=== PATIENT | male | born 1935 | race Caucasian/White ===

== ENCOUNTER 2020-06-30 17:14 | Inpatient (IN) | payer MEDICARE, BC ==
[~2020-06-30] VITALS: Ht 171.4 cm; Wt 68.0 kg
[2020-06-30] MEDS ORDERED: TYLENOL325 M1 PO (18:14)
[2020-06-30] MEDS ORDERED: BROVANA15 MCG/2 M INH (18:15)
[2020-06-30] MEDS ORDERED: LIPITOR40 MG PO (18:16)
[2020-06-30] MEDS ORDERED: LAXATIVE SUPPOS10 MG R (18:17)
[2020-06-30] MEDS ORDERED: COREG6.25 MG PO (18:20)
[2020-06-30] MEDS ORDERED: KEPPRA500 MG PO (18:21)
[2020-06-30] MEDS ORDERED: EXELON1 EACH T (18:21)
[2020-06-30] MEDS ORDERED: ZESTRIL10 MG PO (18:22)
[2020-06-30] MEDS ORDERED: CLARITIN10 MG PO (18:22)
[2020-06-30] MEDS ORDERED: Meclizine25 MG PO (18:23)
[2020-06-30] MEDS ORDERED: PROTONIX40 MG PO (18:24)
[2020-06-30] MEDS ORDERED: MILK OF MA400 MG/5 M PO (18:24)
[2020-06-30] MEDS ORDERED: MIRALAX119 GM PO (18:25)
[2020-06-30] MEDS ORDERED: RISPERDAL0.5 MG PO (18:26)
[2020-06-30] MEDS ORDERED: SENNA LAX8.6 M1 PO (18:27)
[2020-06-30] MEDS ORDERED: VISTARIL50 MG PO (18:29)
[2020-06-30] MEDS ORDERED: Theo-24 200MG200 MG PO (18:29)
[2020-06-30] MEDS ORDERED: [UNRECOGNIZED DRUG - CODE] PO (18:30)
[2020-06-30] MEDS ORDERED: VITAMIN A & D113 GM T (18:40)
[2020-06-30 21:50] VITALS: BP 129/60
--- NOTE | 2020-06-30 21:50 | NUR ---
A 85, admitted pink slip to , under the services of ROLA Richard MD with a diagnosis of intermittent explosive disorder. Chief complaint is combative, threatening to shoot staff at SNF, exit seeking. Patient arrived via wheel chair from [facility]. Initial assessment completed. Vital signs taken and recorded. ROLA RICHARD MD notified of admission to the unit. Orders received. See assessment for past medical history, medications and allergies. Patient oriented to unit. [facility] visitation policy reviewed. Clothing/patient valuable form completed. NAT NERI
--- NOTE | 2020-06-30 22:38 | NUR ---
HOSPITALIST NUMBER CALLED, UPDATED ON NEW ADMISSION, CONSULT PLACED UNDER FOR MEDICAL MANAGEMENT. NO NEW ORDERS RECEIVED.
--- NOTE | 2020-06-30 22:40 | NUR ---
DR. SEWELL AND MEDICAL STUDENT MYRANDA FISHER ON UNIT AT THIS TIME, UPDATE PROVIDED AND INFORMED OF NEEDING WOUND ORDERS. NO NEW ORDERS AT THIS TIME.
[2020-07-01 00:37] LABS: BILIRUBIN Negative (Negative); BLOOD Negative (Negative); CLARITY Clear (Clear); COLOR Yellow (Yellow); GLUCOSE Negative (Negative); KETONE Negative (Negative); LEUKO ESTERASE Negative (Negative); NITRITE Negative (Negative); UROBILINOGEN 0.2 E.U./dl (0.0-1.0)
[2020-07-01 00:48] LABS: WBC 0-2 wbc/hpf (0-5)
--- NOTE | 2020-07-01 01:17 | NUR ---
PT ALERT TO PERSON, APPROX TIME OTHERWISE CONFUSED. PT CALM, COOPERATIVE. PARTICIPATE IN ADMISSION ASSESSMENT. SKIN ASSESSMENT COMPLETED, SEE WOUND SCREEN. PT DENIES SI/HI, HALLUCINATIONS, PAIN. NO PARANOIA OR DELUSIONS NOTED. NO AGGRESSIVE BEHAVIORS NOTED, NO EXIT SEEKING BEHAVIOR. MEDICATION COMPLIANT AFTER REVIEW. UPON AUSCULTATION WHEEZES NOTED TO HAVE EXPIRATORY WHEEZING IN RIGHT ANTERIOR LOBE. NO S/S RESPIRATORY DISTRESS NOTED. PT ABLE TO VOICE NEEDS, X1 ASSIST, CONTINENT/INCONTINENT OF BOWEL & BLADDER. EDUCATED ON USE OF CALL LIGHT, PT VOICED UNDERSTANDING. PT RESTING IN BED AT THIS TIME. PLAN IS TO CONTINUE TO MONITOR MOOD AND BEHAVIORS. Q 15 MIN CHECKS MAINTAINED.
--- NOTE | 2020-07-01 05:50 | NUR ---
24 HR chart check completed.
--- NOTE | 2020-07-01 06:40 | NUR ---
PT SLEPT 2 HOURS.
[2020-07-01 07:29] LABS: BASO # 0.1 10*3/uL (0.0-0.1); BASO % 0.7 % (0.0-1.0); EOS # 0.3 10*3/uL (0.0-0.4); EOS % 3.8 % (1.0-4.0); HEMATOCRIT 37.3 % (42.0-52.0); LYMPH # 1.6 10*3/uL (1.3-4.4); MEAN CELL VOLUME 94.7 fl (80.0-94.0); MEAN CORPUSCULAR HGB 30.2 pg (27.0-31.0); MEAN CORPUSCULAR HGB CONC 31.9 g/dl (33.0-37.0); MONO # 0.7 10*3/uL (0.1-1.0); MONO % 8.7 % (3.0-9.0); NEUT % 65.5 % (47.0-73.0); PLATELET COUNT AUTOMATED 176 10*3/uL (130-400); RED BLOOD COUNT 3.94 10*6/uL (4.50-5.90); RED CELL DISTRI WIDTH 14.3 % (0-14.5); WHITE BLOOD COUNT 7.7 10*3/uL (4.8-10.8)
[2020-07-01 07:46] LABS: ALBUMIN 3.2 gm/dl (3.1-4.5); CREATININE 1.43 mg/dL (0.70-1.30); POTASSIUM 4.9 mmol/L (3.5-5.1); TOTAL PROTEIN 6.3 gm/dL (6.4-8.2)
[2020-07-01 07:54] LABS: THYROID STIM HORMONE (HS) 0.802 uIU/ml (0.358-4.75)
[2020-07-01 08:00] VITALS: BP 133/65
--- NOTE | 2020-07-01 08:15 | NUR ---
Occupational Therapy evaluation completed on three with full evaluation to follow. Recommend occupational therapy per plan of care and SNF upon discharge. Thank you for this referral. Negra Smith OTR/L
--- NOTE | 2020-07-01 08:15 | NUR ---
PHYSICAL THERAPY Physical Therapy evaluation completed on U with full evaluation to follow. Recommend physical therapy per plan of care and return to facility with follow therapy/SNF upon discharge. Thank you for this referral. Leticia Diaz PT
--- NOTE | 2020-07-01 08:30 | NUR ---
Treatment Plan meeting was held this a.m. with Dr. Nayak via telephone, PRE BILLING CLINICIAN Leanna, RN, AT, DRAWBRIDGE OPERATOR-S and Petroleum Production Engineer in attendance. Plan for discharge Next Week. Pt. came to [facility] from [facility]. Will reach out to facility today to discuss discharge planning.
[2020-07-01 08:37] LABS: VITAMIN D, 25-HYDROXY 25.7 ng/mL (30-100)
--- NOTE | 2020-07-01 09:22 | NUR ---
PHYSICAL THERAPY Screen and PT eval received will follow thank you Leticia Diaz PT
--- NOTE | 2020-07-01 11:00 | NUR ---
PT CAME TO THE NURSES STATION TO ASK WHAT THE PAPER WAS THAT HE SIGNED. THE PT STATED "THAT WOMAN DID NOT TELL ME WHAT IT WAS, WHAT WAS IT?" EXPLAINED TO THE PT IT WAS A VOLUNTARY TO SIGN IN FOR TREATMENT TO THE HOSPITAL. PT EASILY REDIRECTED. WILL CONTINUE TO OFFER SUPPORT FOR PT.
--- NOTE | 2020-07-01 11:00 | NUR ---
DR PAGE ON UNIT TO ASSESS PATIENT, UPDATE PROVIDED.
--- NOTE | 2020-07-01 11:52 | NUR ---
Spoke with Chiara Automatic Wheel Line Operator at [facility]. 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 [facility] requires Negative Covid Swab 48 hours Prior to discharge. Pt. will be required to Quarantine and Isolate for 14 days upon return to facility even with negative results.
--- NOTE | 2020-07-01 12:15 | NUR ---
Left Message for Pt. daughter Claire to inquire about Medical Power of Data Coordinator Paperwork.
--- NOTE | 2020-07-01 15:52 | NUR ---
PM GROUP PT WAS BROUGHT INTO THE DAYROOM BY [facility] DURING GROUP BUT PT COULD NOT BE CONVINCED TO STAY. PT STATED, "NO, I'M GOING TO GO DOWN TO THE END OF THIS CHIANG AND FIND THE JOVANA THAT BROUGHT ME HERE. I GOTTA PROFESSOR OF ARCHAEOLOGY MY AND DAUGHTER" PT EXITED THE DAYROOM AND DID NOT RETURN.
--- NOTE | 2020-07-01 15:59 | NUR ---
P: CONFUSION, SEVERAL ATTEMPTS TO EXIT SEEK OFF UNIT. I: ONE ON ONE, REDIRECTION/REORIENTATION PROVIDED R: EFFECTIVE. NO AGGRESSION OBSERVED. PATIENT IS ALERT TO SELF WITH CONFUSION. DENIES HALLLUCINATIONS, DELUSION, HI/SI OR PAIN. NO RESPONSE TO INTERNAL STIMULI. MEDICATION COMPLAINT. Q 15 MINUTE SAFETY CHECKS MAINTAINED. 1 PERSON ASSIST WITH ACTIVITIES OF DAILY LIVING, CONTINENT OF BOWEL AND BLADDER. SET UP FOR MEALS, INTAKES ARE GOOD WITH ADEQUATE FLUIDS. AMBULATORY WITH WALKER. NO AGGRESSION OBSERVED. DID NOT PARTICIPATE IN GROUP SESSSIONS. P: CONTINUE TO MONITOR FOR MOOD CHANGES, AGGRESSION AND EXIT SEEKING. PROVIDE ONE ON ONE, REDIRECTION/OREINTATION, ENCOURGE GROUP ACTIVITIES NEEDED.
--- NOTE | 2020-07-01 16:18 | NUR ---
Shift chart check completed.
--- NOTE | 2020-07-01 17:55 | NUR ---
PATIENT REPEATEDLY AT THE ENTERANCE DOOR, TRYING TO PRY TO DOOR OPEN. REDIRECTED MULTIPLY TIMES, THEN PATIENT WOULD GO EVERY DOOR AND TRY TO OPEN THE DOORS. PATIENT STATING "I WANT TO GO HOME" PATIENT REORIENTED, INEFFECTIVE. PRN ATIVAN 1MG PO GIVEN AT THIS TIME. ENCOURAGE PATIENT TO COME IN DINING ROOM AND WATCH TV WITH THE OTHER PATIENTS.
--- NOTE | 2020-07-01 18:42 | NUR ---
PRN ATIVAN EFFECTIVE. PATIENT CONTINUES TO GO TO THE DOORS TO ATTEMPT TO OPEN BUT NOT OFTEN.
[2020-07-01 19:43] VITALS: BP 111/59
--- NOTE | 2020-07-01 22:52 | NUR ---
P-CONFUSED. EXIT SEEKING. I-PROVIDED REIDRECTION, REORIENTATION AND 1:1 EMOTIONAL SUPPORT. ENCOURAGED MEDICATION COMPLIANCE AND PROVIDED MEDICATION EDUCATION. ADMINISTERED MEDICATIONS PRESCRIBED. ADLS X1 ASSIST PRN. R-ALERT AND ORIENTED TO PERSON ONLY. FREQUENT REDIRECTION, REORIENTATION NEEDED. ACCEPTED 1:1 EMOTIONAL SUPPORT. MEDICATION COMPLIANT. AMBULATES THROUGHOUT UNIT WITH WALKER. P-WILL CONTINUE TO MONITOR FOR EXIT SEEKING, MOOD AND BEHAVIOR. Q 15 MIN CHECKS MAINTAINED.
--- NOTE | 2020-07-02 06:15 | NUR ---
24 HR chart check completed. PT SLEPT 4 HOURS WITH INTERMITTENT AWAKENINGS.
--- NOTE | 2020-07-02 07:00 | NUR ---
PHYSICAL THERAPY Patient seen this am for therapy visit and was just awakening supine in bed upon therapist arrival. Patient identified by name / and was joined by OT physicians assistant this morning for observation only. Patient tranfers supine to sit EOB with MIN A, demonstrating several bouts of L side lean, needing a minute or so of static EOB sit to fully awaken, voicing no c/o's pain at this time. Patient completed sit to stand transfer, CGA, then ambulated with use of wh walker, ad mirza in hallway, 100'x 1, CGA, demonstrating decreased stride, L side gait deviation / "drifting" and v/c for increased focus on task while returning to activity room chair at table. Patient remained under U staff Supervision, awaiting breakfast and will continue per POC as tolerated. Total treatment time 14 minutes. Geoff Joy, BORING AND FILLING MACHINE OPERATOR
[2020-07-02 07:36] VITALS: BP 121/65
--- NOTE | 2020-07-02 08:00 | NUR ---
OT NOTE Prior to coming to the floor spoke with nursing staff and reported that therapy was coming to treat this pt. Nurse gave approval. Pt was seen this A.M. 1:1 for 15 minute OT session with NUTRITION PARTNER and nursing staff present for observation only. Upon arrival pt was supine in bed. Pt identified by name and and had no complaints at this time. Pt transferred supine to sit EOB with modA X 2. Upon inital rise to the EOB pt presented with L lateral lean that required modA to correct and maintain. Sit to stand completed from bed level with Feliciano X 2 and use of w/w for UE support. Challenged pt's static standing tolerance needed for increased I in self care tasks and functional transfers, pt was able to tolerate aprox 4 minutes at a time before sitting due to fatigue. Functional mobility was then completed to the dining camilo with Feliciano and use of w/w for assist with walker navigation and verbal prompts for correcting posture. Pt was left sitting upright in the dining camilo under [facility] staff supervision. COntinue with rec D/C plan to SNF. ELEANOR Dubois/Yohannes
--- NOTE | 2020-07-02 08:30 | NUR ---
Treatment Plan meeting was held this a.m. with TREASURE Ram RN, AT and Swaging Machine Operator in attendance. Plan for discharge Next Week. Pt. will return to [facility] as a Long-Term Care Resident.
--- NOTE | 2020-07-02 09:24 | NUR ---
DR DRAKE ON UNIT TO ASSESS PATIENT, UPDATE PROVIDED.
--- NOTE | 2020-07-02 11:22 | NUR ---
P: PATIENT IS CONFUSED, IRRITABLE AND RESTLESS. PATIENT WANTS TO GO HOME. PATIENT IS ACTIVELY EXIT SEEKING. I: 1:1 FOR EMOTIONAL SUPPORT. PROVIDE SPACE NEEDED. ALLOW PATIENT TO VERBALIZE FEELINGS AND CONCERNS. R: PATIENT IS ALERT TO SELF ONLY WITH CONFUSION. PATIENT STATES HE IS "[place]". PATIENT STATES IT IS THE YEAR 42,000. PATIENT IS CONFUSED. HE IS EXIT SEEKING, WANTS TO LEAVE HERE TO GO HOME. PATIENT DENIES ANY SADNESS OR DEPRESSION. DENIES ANXIETY, DENIES HALLUCINATIONS OR DELUSIONS. PATIENT DENIES SI/HI. PATIENT IS HARD OF HEARING BUT DOES COOPERATIVE THROUGHOUT ASSESSMENT. PATIENT IS AMBULATORY WITH WAKER. 1 ASSSIT WITH TRANSFERS. SET UP FOR MEALS. INTAKES ARE GOOD WITH ADEQUATE FLUIDS. PATIENT IS MEDICATION COMPLIANT WITH EDUCATION. P: ENOURAGE PATIENT TO PARTICIPATE IN GROUP ACTIVITES. ENOURAGE MEDICATION COMPLIACE. ENCOURAGE PATIENT TO VERBALIZE FEELINGS. CONTINUE TO MONITOR FOR MOODS/BEHAVIORS. Q15 MINUTE SAFETY CHECKS MAINTAINED.
--- NOTE | 2020-07-02 11:49 | NUR ---
AM GROUP PT WAS PRESENT AT THE START OF MORNING GROUP THERAPY AND WAS SEATED AT A TABLE. PT WAS ENCOURAGED TO PARTICIPATE IN GROUP ACTIVITIES BUT STATED, "NO, I HAVE TO GO FIND MY CAR." PT SAT FOR A FEW MINUTES AND THEN LEFT THE DAYROOM. PT DID NOT RETURN.
--- NOTE | 2020-07-02 12:38 | NUR ---
SPEECH PATHOLOGY Nursing screen completed. There are no reports of acute dysphagia or communication difficulty. Services do not appear to be indicated however this dept. will remain available should future needs arise. LATOYA MORGAN [facility]-DRAWING IN MACHINE TENDER
--- NOTE | 2020-07-02 12:53 | NUR ---
Clinical Updates faxed to [facility] attn: Chiara.
--- NOTE | 2020-07-02 15:43 | NUR ---
PM GROUP PT DID NOT ATTEND AFTERNOON GROUP THERAPY. PT WAS IN BED RESTING.
--- NOTE | 2020-07-02 18:06 | NUR ---
RESPIRATORY CALLED AND THIS NURSE SPOKE TO EDWIGE. RESPIRATORY AWARE OF PATIENT REQUEST OF BREATHING TREATMENT
[2020-07-02 19:10] VITALS: BP 108/62
--- NOTE | 2020-07-02 19:16 | NUR ---
RESPIRTATORY ON UNIT TO GIVE PATIENT BREATHING TREATMENT AT PATIENT REQUEST
--- NOTE | 2020-07-02 19:54 | NUR ---
Called and notified Dr. Shah regarding patient low blood pressure and HS medications Coreg and Lisinopril. Dr. Shah said to hold Coreg and give Lisinopril.
--- NOTE | 2020-07-02 22:32 | NUR ---
Patient alert to self only with confusion noted. Mood is calm,cooperative but isolative to his room. Patient denies SI/HI or any hallucinations. No overt s/s of any responding to internal stimuli noted at this time. Patient compliant with HS medications without any difficulty. Offered emotional support but patient refused and said "I just want to go to sleep right now". Plan to continue to encourage medication compliance. Also continue to offer emotional support and continue to redirect/reorient when needed/appropriate. Will continue to monitor moods/behaviors. Q 15 minute safety checks continued and maintained. See [facility] flowsheet for further documentation.
--- NOTE | 2020-07-03 05:49 | NUR ---
Patient slept approx. 5.5 hours throughout shift. Q 15 minute safety checks continued and maintained.
--- NOTE | 2020-07-03 07:00 | NUR ---
PHYSICAL THERAPY Patient seen this am for therapy visit and was just awakening supine in bed upon therapist arrival. Patient identified by name / and joined by OT account assistant for observation only this session. Patient reports no new c/o's and transfers supine to sit EOB then sit to stand CGA x 1. while ambulating with use of wh walker, 15'x 1, to bathroom. Patient ambulated additonal 125'x 1, CGA, wh walker, demonstrating slow, cautious harvey and no gait deviation this session. Patient needed v/c for improved walker safety / navigation during all 90/180 turns and returned to activity room chair awaiting breakfast, under [facility] staff Supervision. Will continue per POC as tolerated, total treatment time 15 minutes. Geoff Joy, CARDIOVASCULAR TECHNICIAN
--- NOTE | 2020-07-03 07:15 | NUR ---
OT NOTE Prior to coming to the floor spoke with nurse Reyes and reported that therapy was coming to treat this pt. Nurse gave approval. Pt was seen this A.M. 1:1 for 15 minute OT session. Upon arrival pt was supine in bed. Pt identified by name and and had no complaints at this time. Pt transferred supine to sit EOB with CGA. While sitting EOB pt donned B socks with SBA. Sit to stand completed from bed level with CGA for safety followed by functional mobility to the bathroom with CGA and use of w/w for UE support. Pt stood sink side while washing his hands and face with CGA for safety. Throughout pt was able to maintain F+ standing balance throughout. Functional mobility completed back to the dining camilo with CGA and use of w/w. There he was left sitting upright under U staff supervision. Continue with rec D/C plan to SNF. ELEANOR Dubois/Yohannes
[2020-07-03 07:48] VITALS: BP 112/65
--- NOTE | 2020-07-03 08:52 | NUR ---
Patient resting quietly with no c/o discomfort. Respirations easy and regular. Vital signs stable. No overt distress. COMFORT VASQUEZ PT ATE BREAKFAST AND RETURNED TO ROOM. PT AWAKE, ALERT AND VERBAL. ON UNIT TO SEE PT AT THIS TIME, UPDATE GIVEN.
--- NOTE | 2020-07-03 09:30 | NUR ---
Treatment Plan meeting was held this a.m. with Dr. Nayak, RN, AT and Galley Boy in attendance. Plan for discharge Next week. Pt. will return to [facility].
--- NOTE | 2020-07-03 09:33 | NUR ---
ON UNIT TO SEE PT AT THIS TIME.
--- NOTE | 2020-07-03 11:59 | NUR ---
AM GROUP PT DID NOT ATTEND MORNING GROUP THERAPY. PT WAS IN BED RESTING.
--- NOTE | 2020-07-03 15:37 | NUR ---
PM GROUP PT ATTENDED AFTERNOON GROUP THERAPY AND PARTICIPATED BY READING THE NEWSPAPER AND LOOKING AT A MAGAZINE. PT WAS QUIET AND FOCUSED. PT GOT UP AND STATED, "I'M GOING TO LAY DOWN FOR A LITTLE NAP. MY BACK STARTS TO HURT ME IF I'M UP FOR TOO LONG. IF IT WASN'T FOR MY BACK, I'D BE FINE" PT LEFT THE DAYROOM AND DID NOT RETURN.
--- NOTE | 2020-07-03 15:59 | NUR ---
P- PLEASANTLY CONFUSED, ISOLATIVE/WITHDRAWN. I- ORIENTATION, MOOD AND BEHAVIORS ASSESSED. ASSESSED PT FOR SI/HI, INTENT OR PLAN. ASSESSED PT FOR S/S HALLUCINATIONS, PARANOIA AND/OR DELUSIONS. MEDICATIONS ADMINISTERED PER PHYSICIAN'S ORDERS. ASSISTANCE WITH ADL CARE PROVIDED NEEDED. ENCOURAGED PT TO ATTEND AND PARTICIPATE IN WELSH MILIEU GROUPS AND ACTIVITIES. R- PT IS ALERT AND ORIENTED TO SELF ONLY. PT STATES HE BELIEVES HE IS "IN [place]". OTHERWISE CONFUSED. ST/LT MEMORY GAPS NOTED. RESPS EASY AND EVEN ON ROOM AIR. MOOD APPEARS STABLE WITH APPROPRIATE AFFECT. SPEECH IS WNL AND COHERENT, ABLE TO MAKE NEEDS KNOWN WITHOUT DIFFICULTY. PT DENIES SI/HI, INTENT OR PLAN. PT DENIES HALLUCINATIONS, NO RESPONSE TO INTERNAL STIMULI NOTED. NO PARANOIA OR DELUSIONS NOTED. PT IS MEDICATION COMPLIANT WITHOUT DIFFICULTY. PT HAS BEEN CALM, PLEASANT AND COOPERATIVE. NO AGGRESSION OR EXIT SEEKING BEHAVIORS NOTED. NO DISTRESS NOTED. P- PLAN TO CONTINUE CURRENT TREATMENT, CONTINUE TO MONITOR MOOD AND BEHAVIORS, PROVIDE APPROPRIATE REORIENTATION AND REDIRECTION NEEDED. CONTINUE TO ENCOURAGE MEDICATION COMPLIANCE WELL GROUP ATTENDANCE AND PARTICIPATION.
[2020-07-03 19:04] VITALS: BP 114/68
--- NOTE | 2020-07-03 21:29 | NUR ---
Patient alert to self only with confusion noted. Mood is calm,cooperative but isolative to his room. Patient denies SI/HI or any hallucinations. No overt s/s of any responding to internal stimuli noted at this time. Patient compliant with HS medications without any difficulty. Provided 1:1 for emotional support. Redirected/reoriented when needed. Plan to continue to encourage medication compliance. Also continue to offer emotional support and continue to redirect/reorient when needed/appropriate. Will continue to monitor moods/behaviors. Q 15 minute safety checks continued and maintained. See [facility] flowsheet for further documentation.
--- NOTE | 2020-07-04 00:35 | NUR ---
24 HR chart check completed.
--- NOTE | 2020-07-04 06:12 | NUR ---
PT SLEPT APPROXIMATELY 6 HOURS
--- NOTE | 2020-07-04 07:00 | NUR ---
PHYSICAL THERAPY Patient seen this am for therapy visit and was sitting up in activity table chair upon therapist arrival. Patient identified by name / and reports no new c/o's at this time. OT asssistant was present this morning for observation only as patient transfers SBA sit to stand, then ambulates with use of wh walker, 130'x 2, SBA. Patient demonstrated slow, steay harvey and no LOB, however needed v/c to stand tall, secondary to bouts of "slouched" standing posture. Patient returned to activity room chair and remained at table awaiting breakfast, under [facility] staff Supervision. Will continue per POC as tolerated, total treatment time 15 minutes. Geoff Joy, EDUCATIONAL PARAPROFESSIONAL
--- NOTE | 2020-07-04 07:08 | NUR ---
OT NOTE Prior to start of session spoke with nurse Reyes and reported that therapy was coming to treat this pt. Nurse gave approval. Pt was seen this A.M. 1:1 for 18 minute OT session with DANCE HISTORIAN and nursing staff present for observation only. Upon arrival pt was sitting upright in the dining camilo. Pt identified by name and and had no complaints at this time. Sit to stand completed from chair level with CGA followed by functional mobility to the bathroom with SBA and use of w/w for UE support. There he transferred on/off standard commode with CGA and use of grab bar for UE support. He then stood sink side while washing his hands with CGA for safety. Throughout pt presented with F+ standing balance. Functional mobility was then completed back to the dining camilo with SBA and use of w/w. There he was left sitting upright under [facility] staff supervision. Continue with rec D/C plan to SNF. ELEANOR Dubois/Yohannes
[2020-07-04 07:29] VITALS: BP 116/65
--- NOTE | 2020-07-04 08:30 | NUR ---
Treatment Plan meeting was held this a.m. with TREASURE Ram, RN, AT, REHAB CARE ASSISTANT-S and Personnel Research Psychologist in attendance. Plan for discharge Next Week. Pt. will return to [facility].
--- NOTE | 2020-07-04 09:49 | NUR ---
ON UNIT TO SEE PT AT THIS TIME.
--- NOTE | 2020-07-04 11:41 | NUR ---
AM GROUP/[facility] PT DID NOT ATTEND MORNING GROUP THERAPY. PT WAS IN BED RESTING.
--- NOTE | 2020-07-04 12:43 | NUR ---
PHYSICAL THERAPY CO-SIGN I approve of the Physical Therapy notes written above. Leticia Diaz PT
--- NOTE | 2020-07-04 14:19 | NUR ---
Pt was pleasantly confused as he walked in the camilo with this writer editor. Pt did not display any aggression or inappropriate behaviors.
--- NOTE | 2020-07-04 14:22 | NUR ---
Left a voicemail message for pt's daughter Claire Mullins this AM offering to provide update. Await return call.
--- NOTE | 2020-07-04 14:30 | NUR ---
P- PLEASANTLY CONFUSED, ISOLATIVE/WITHDRAWN I- ORIENTATION, MOOD AND BEHAVIORS ASSESSED. ASSESSED PT FOR SI/HI, INTENT OR PLAN. ASSESSED PT FOR S/S HALLUCINATIONS, PARANOIA AND/OR DELUSIONS. MEDICATIONS ADMINISTERED PER PHYSICIAN'S ORDERS. ASSISTANCE WITH ADL CARE PROVIDED NEEDED. ENCOURAGED PT TO ATTEND AND PARTICIPATE IN WELSH MILIEU GROUPS AND ACTIVITIES. R- PT IS ALERT AND ORIENTED TO NAME ONLY, OTHERWISE PLEASANTLY CONFUSED WITH MEMORY GAPS NOTED. RESPS EASY AND EVEN ON ROOM AIR. MOOD APPEARS STABLE, AFFECT IS FLAT. SPEECH IS SOFT, COHERENT, ABLE TO MAKE NEEDS KNOWN WITHOUT DIFFICULTY. PT DENIES SI/HI, INTENT OR PLAN. PT DENIES HALLUCINATIONS, NO RESPONSE TO INTERNAL STIMULI NOTED. NO PARANOIA OR DELUSIONS NOTED. PT IS CALM, PLEASANT AND COOPERATIVE. PT STATES " I DON'T KNOW WHY I'M HERE. I'M READY TO GO HOME". EASILY REORIENTED/REDIRECTION. PT DOES NOT RECALL EVENTS LEADING TO HOSPITALIZATION. NO AGGRESSIVE OR EXIT SEEKING BEHAVIORS DISPLAYED. NO DISTRESS NOTED. P- PLAN TO CONTINUE CURRENT TREATMENT, CONTINUE TO MONITOR MOOD AND BEHAVIORS, PROVIDE APPROPRIATE REORIENTATION AND REDIRECTION NEEDED. CONTINUE TO ENCOURAGE MEDICATION COMPLIANCE WELL GROUP ATTENDANCE AND PARTICIPATION.
--- NOTE | 2020-07-04 14:31 | NUR ---
Clinical Updates faxed to [facility].
--- NOTE | 2020-07-04 15:36 | NUR ---
PM GROUP PT DID NOT ATTEND AFTERNOON GROUP THERAPY. PT WAS IN BED RESTING.
[2020-07-04 20:01] VITALS: BP 100/56
--- NOTE | 2020-07-04 21:53 | NUR ---
P-CONFUSED, ISOLATIVE, HARD OF HEARING I-PROVIDE EMOTIONAL SUPPORT, REORIENT, REPEAT STATEMENTS LOUDLY DUE TO PT BEING HARD OF HEARING, ADMININSTER MEDS, MONITOR SLEEP R-PT IS PLEASANTLY CONFUSED WITH MEMORY GAPS, ALERT TO PERSON ONLY, CONTINUES TO HAVE DIFFICULTY WITH HEARING & UNDERSTANDING QUESTIONS ASKED & RESPONDS VERBALLY WITH WHAT HE THINKS HE HEARD. COMPLAINT WITH MEDS. REMAINED ISOLATIVE IN HIS ROOM. DENIES ANY PHYSICAL COMPLAINTS. P-CONTINUE TO MONITOR
--- NOTE | 2020-07-05 05:51 | NUR ---
PT HAS SLEPT INTERMITTENTLY THROUGHTOUT THE SHIFT FOR A TOTAL OF APPROX 5 HOURS. WAS AWAKE @ 0300 & NOTED TO RESPOND TO AUDITORY & VISUAL HALLUCINATIONS. STATED THAT HE HAD TO GET UP & GO TO WORK. "ME & THOSE OTHER 2 GUYS OVER THERE. WE NEED TO GET BUSY & GO PAINT." PT TURNED UPPER BODY & HEAD TOWARDS CLOSET AREA & CARRIED ON A SMALL CONVERSATION WITH "SERG" & INFORMED STAFF TO "MAKE SURE YOU LET [facility] KNOW WHERE WE ARE AT". UNRECEPTIVE TO REALITY PRESENTATION AT THIS TIME. NO AGITATION OR YELLING. PLEASANT WITH CONVERSATION. REQUIRED REDIRECTION. PT RETURNED TO SLEEP AT 0330.
--- NOTE | 2020-07-05 06:32 | NUR ---
PT AWAKE AT THIS TIME. CONFUSION CONTINUES. HAS WENT TO BACK EXIT DOOR NEAR HIS ROOM & MESSED WITH THE DOOR STATING "I GOTTA GET OUT OF HERE. GOTTA GET TO WORK. I HAVE TO GO PAINT". PLACED ON ELOPEMENT PRECAUTIONS A NURSING MEASURE.
[2020-07-05 08:00] VITALS: BP 110/58
--- NOTE | 2020-07-05 12:16 | NUR ---
ON UNIT TO SEE PT AT THIS TIME.
--- NOTE | 2020-07-05 15:09 | NUR ---
CALL PLACED TO RESPIRATORY TO REQUEST [facility] PER PT REQUEST.
--- NOTE | 2020-07-05 15:20 | NUR ---
NO ADVERSE MOODS OR BEHAVIORS THIS SHIFT. PT IS ALERT AND ORIENTED TO SELF ONLY, OTHERWISE PLEASANTLY CONFUSED. ST/LT MEMORY GAPS NOTED. RESPS EASY AND EVEN ON ROOM AIR. MOOD IS STABLE, AFFECT APPROPRIATE. SPEECH IS WNL AND COHERENT, ABLE TO MAKE NEEDS KNOWN WITHOUT DIFFICULTY. PT DENIES SI/HI, INTENT OR PLAN. PT DENIES HALLUCINATIONS, NO RESPONSE TO INTERNAL STIMULI NOTED. NO PARANOIA OR DELUSIONS NOTED. PT IS MEDICATION COMPLIANT WITHOUT DIFFICULTY. NO AGGRESSIVE OR EXIT SEEKING BEHAVIORS DISPLAYED. NO DISTRESS NOTED. PLAN TO CONTINUE CURRENT TREATMENT.
--- NOTE | 2020-07-05 16:45 | NUR ---
PT REPORTED TO RN HE WAS HAVING "SHARP PAINS AROUND MY HEART" PT STATES "I GET THIS WHEN I GET SHORT OF BREATH, SO I KNOW WHEN I NEED MY ALBUTEROL". VITALS ASSESSED AND ARE FOLLOWS: [id number]/45 ON MACHINE, 78/30 MANUAL, POX 99% ON ROOM AIR. NO S/S DISTRESS AT THIS TIME. PT STATES HE WAS DIZZY THIS MORNING BUT DENIES FEELING DIZZY AT THIS TIME. PT STATES PAIN HAS DECREASED AND "IS NOT LIKE IT WAS". PT DENIES RADIATING PAIN. NOTIFIED VIA TELEPHONE WITH ORDER RECIEVED FOR STAT EKG. THEN CAME TO UNIT TO ASSESS PT. ADDTL ORDER PLACED FOR TROPONIN LAB DRAW. STATES TO RECHECK BP IN 15-20 MINS AND UPDATE.
--- NOTE | 2020-07-05 16:45 | NUR ---
PT IS RESTING QUIETLY IN BED AT THIS TIME WITH HOB ELEVATED. PT STATES HE IS FEELING BETTER. DENIES ANY FURTHER CHEST PAIN OR SHORTNESS OF BREATH AT THIS TIME. DECLINED DINNER BUT ASKED FOR GLASS OF WATER. WATER PROVIDED. ENCOURAGED PT TO UTILIZE CALL BUTTON IF HELP IS NEEDED. PT AGREED. WILL CONT TO MONITOR.
--- NOTE | 2020-07-05 16:50 | NUR ---
BP RECHECK MANUAL WITH RESULT 90/42. DR.INDERYAS MARTIN. EKG NOT YET COMPLETED, CALL PLACED TO EKG REGARDING. STATES THEY ARE IN ER AND WILL BE UP.
--- NOTE | 2020-07-05 17:26 | NUR ---
EKG COMPLETED WITH RESULT NORMAL SINUS RHYTHM. HR 61. UPDATED. NEW ORDERS RECIEVED FOR IV FLUIDS.
--- NOTE | 2020-07-05 18:38 | NUR ---
IV INSERTION UNSUCCESSFUL, ATTEMPTED BY THIS RN AND 2ND RN. RN FROM MEDICAL FLOOR ABLE TO PLACE IV TO RIGHT FOREARM. IV FLUIDS HUNG AND RUNNING WITHOUT DIFFICULTY AT THIS TIME PER ORDERS. PT RESTING COMFORTABLY IN BED. NO S/S DISTRESS. NO FURTHER COMPLAINTS. PT VOICES UNDERSTANDING OF HOW TO UTILIZE CALL BUTTON SHOULD HE NEED ASSISTANCE.
[2020-07-05 19:51] VITALS: BP 101/57
--- NOTE | 2020-07-05 23:41 | NUR ---
P-CONFUSED, ISOLATIVE, HARD OF HEARING I-PROVIDE EMOTIONAL SUPPORT, REORIENT, REPEAT STATEMENTS LOUDLY DUE TO PT BEING HARD OF HEARING, ADMININSTER MEDS, MONITOR SLEEP R-PT IS PLEASANTLY CONFUSED WITH MEMORY GAPS, ALERT TO PERSON ONLY, CONTINUES TO HAVE DIFFICULTY WITH HEARING & UNDERSTANDING QUESTIONS ASKED & RESPONDS VERBALLY WITH WHAT HE THINKS HE HEARD. COMPLAINT WITH MEDS. REMAINED ISOLATIVE IN HIS ROOM. DENIES ANY PHYSICAL COMPLAINTS. COMPLAINT RESTING IN BED WITH IV RUNNING. P-CONTINUE TO MONITOR
--- NOTE | 2020-07-05 23:44 | NUR ---
DR JENKINS PHONED UNIT. ORDERS RECEIVED TO HOLD COREG 6.25 MG & ZESTRIL 10 MG TONIGHT DUE TO PT BP ON 101/57 & PULSE 63. HE WAS UPDATED ON PT WHO HAS BEEN PLEASANT, COMPLIANT & ASYMPTAMATIC WITH HEART ISSUES. DR JENKINS STATED THAT HE REVIEWED PTS EKG & STATED HE WAS GOING TO ORDER ANOTHER EKG & LABS IN THE AM. ALSO ASKED IF THERE WAS A PREVIOUS EKG ON ADMISSION TO COMPARE. AFTER LOOKING THROUGH PTS CHART THERE WAS NO PREVIOUS EKG REPORT. PHONED FACILITY & REQUESTED FORMER EKG. RECEIVED VIA FAX EKG FROM APRIL 2020. DR JENKINS NOTIFIED & CAME TO UNIT TO REVIEW & COMPARE EKGS. NO FURTHER ORDERS RECEIVED.
--- NOTE | 2020-07-06 04:50 | NUR ---
24 HR chart check completed.
--- NOTE | 2020-07-06 05:29 | NUR ---
PT HAS SLEPT QUIETLY PAST 2300. IV CONTINUES TO RUN IN RIGHT ARM
[2020-07-06 06:42] LABS: CREATININE 1.44 mg/dL (0.70-1.30); POTASSIUM 4.8 mmol/L (3.5-5.1)
[2020-07-06 07:56] VITALS: BP 132/62
--- NOTE | 2020-07-06 18:27 | NUR ---
NO ADVERSE MOODS OR BEHAVIORS NOTED. PT PLEASANTLY CONFUSED. MEDICATION COMPLIANT CONTINUE TO MONITOR BEHAVIORS WITH Q15 MINUTE SAFETY CHECKS. SEE [facility] FLOWSHEET FOR SPECIFIC MONITORING.
[2020-07-06 20:00] VITALS: BP 114/59
[2020-07-06 20:30] VITALS: BP 116/68
--- NOTE | 2020-07-07 00:23 | NUR ---
P-CONFUSION, PT STATES TO STAFF "HOW THE HECK DID YOU GET IN HERE, THE DOORS ARE ALWAYS LOCKED FOR ME" I-PRESENT REALITY AND REORIENT. PROVIDE 1:1 WITH THERAPEUTIC INTERVENTIONS. ENCOURAGE MEDICATION COMPLIANCE AND EDUCATE. MONTIOR SLEEP. R-PT UNRECEPTIVE TO REORIENTATION, CONTINUES TO BE PREOCCUPIED WITH THE DOORS BEING LOCKED FOR HIM. PT OTHERWISE CALM, ISOLATIVE TO ROOM AND BED. REFUSED HS SNACK. MEDICATION COMPLIANT WITHOUT DIFFICULTY. DENIES SI/HI, HALLUCINATIONS, OR PAIN. PT AMBULATORY USING A WALKER, GAIT STEADY. X1 ASSIST WITH ADLS, CONTINENT/INCONTINENT BOWEL AND BLADDER. NO DISTRESS NOTED. P-CONTINUE TO MONITOR MOOD AND BEHAVIORS. MAINTAIN Q 15 MIN SAFETY CHECKS AND PRN FOR SAFETY.
--- NOTE | 2020-07-07 05:44 | NUR ---
PATIENT OBSERVED ON Q 15 MIN CHECKS TO HAVE SLEPT APPROX 6 HOURS UNINTERRUPTED. NO DISTRESS NOTED.
--- NOTE | 2020-07-07 07:25 | NUR ---
PHYSICAL THERAPY Patient seen this am for therapy visit and was just awakening supine in bed upon therapist arrival. Patient identified by name / and was joined by OT certified surgical first assistant for observation this session. Patient reported no new c/o's, other than chronic double reamer operator joint stiffness and transfers supine to sit EOB with MIN/CGA. Patient needed a minute or so to fully awaken while sitting static EOB, then completed sit to stand tranfer, CGA x 1. Patient ambulated with use of wh walker, 15'x 1 to bathroom, [facility], wh walker, CGA, demonstrating slow, steady harvey and no gait deviation noted. Patient was pleasant while returning to activity room chair at table awaiting breakfast. Patient remained under [facility] staff Supervision and will continue per POC as tolerated, total treatment time 14 minutes. Geoff Joy, GUTTER HANGER
--- NOTE | 2020-07-07 07:30 | NUR ---
OT NOTE Prior to coming to the floor spoke with nurse Chung and reported that therapy was coming to treat this pt. Nurse gave approval. Pt was seen this A.M. 1:1 for 15 minute OT session with SUPERVISOR FELLING BUCKING and nursing staff present for observation only. Upon arrival pt was supine in bed. Pt identified by name and and had no complaints at this time. Pt transferred supine to sit EOB with Feliciano for assist with upper body. While sitting EOB pt donned B shoes with SBA. Sit to stand completed from bed level with CGA and use of w/w for UE support. Functional mobility completed from the EOB to the bathroom with CGA and use of w/w. There he stood sink side while washing his hands with CGA for safety. Challenged pt's dynamic standing balance while weight shifting, crossing midline, and reaching over all planes. Pt was able to maintain F/F+ standing balance throughout. Functional mobility completed from the bathroom to the dining camilo with CGA and use of w/w. There he was left sitting upright in the dining camilo under [facility] staff supervision. Continue with rec D/C plan to SNF. ELEANOR Dubois/Yohannes
[2020-07-07 07:43] VITALS: BP 116/75
--- NOTE | 2020-07-07 08:30 | NUR ---
Treatment Plan meeting was held this a.m. with Dr. Nayak, TREASURE Ram, RN, AT, SW and Collection Advisor in attendance. Plan for discharge . Pt. will return to [facility] at discharge.
--- NOTE | 2020-07-07 11:05 | NUR ---
FRANCIS FIGUEROA PEDIATRIC PHYSICAL THERAPY ASSISTANT ON UNIT TO ASSESS PT, UPDATE PROVIDED.
--- NOTE | 2020-07-07 11:46 | NUR ---
AM GROUP PT DID NOT ATTEND MORNING GROUP THERAPY. PT WAS IN BED RESTING.
--- NOTE | 2020-07-07 13:00 | NUR ---
Clinical Updates faxed to [facility]. Spoke with Chiara at the Facility and discussed discharge plans for . Provided with updates.
--- NOTE | 2020-07-07 13:56 | NUR ---
COVID SWAB OBTAINED AND SENT TO LAB, PT TOELRATED WITH MINIMAL ISSUE.
--- NOTE | 2020-07-07 15:37 | NUR ---
PM GROUP PT DID NOT ATTEND AFTERNOON GROUP THERAPY. PT WAS IN BED RESTING.
--- NOTE | 2020-07-07 17:03 | NUR ---
NO ADVERSE MOODS OR BEHAVIORS NOTED. PT PLEASANTLY CONFUSED. MEDICATION COMPLIANT CONTINUE TO MONITOR BEHAVIORS WITH Q15 MINUTE SAFETY CHECKS. SEE [facility] FLOWSHEET FOR SPECIFIC MONITORING.
--- NOTE | 2020-07-07 17:10 | NUR ---
IV REMOVED FROM PT RIGHT FOREARM, CATHETER INTACT. PT TOELRATED WITHOUT ISSUE. DRESSING APPLIED.
[2020-07-07 19:11] VITALS: BP 135/69
--- NOTE | 2020-07-07 23:14 | NUR ---
NO ADVERSE BEHAVIORS NOTED. ALERT AND ORIENTED TO SELF, PLEASANTLY CONFUSED. ISOLATIVE TO ROOM AND BED SINCE BEGINNING OF SHIFT, STATED TO STAFF "OH IM JUST READY FOR BED, IM TIRED". REFUSED HS SNACK. MEDICATION COMPLIANT WITHOUT DIFFICULTY. DENIES SI/HI, HALLUCINATIONS, OR PAIN. PT AMBULATORY USING A WALKER, GAIT STEADY. X1 ASSIST WITH ADLS, CONTINENT/INCONTINENT BOWEL AND BLADDER. NO DISTRESS NOTED. PLAN IS TO CONTINUE TO MONITOR MOOD AND BEHAVIORS. MAINTAIN Q 15 MIN SAFETY CHECKS AND PRN FOR SAFETY.
--- NOTE | 2020-07-08 05:36 | NUR ---
24 HOUR CHART CHECK COMPLETED.
--- NOTE | 2020-07-08 05:47 | NUR ---
PATIENT OBSERVED ON Q 15 MIN CHECKS TO HAVE SLEPT APPROX 10 HOURS WITH X1 AWAKENING TO USE THE RESTROOM WITH ASSISTANCE. NO DISTRESS NOTED.
--- NOTE | 2020-07-08 07:05 | NUR ---
PHYSICAL THERAPY Patient seen this am for therapy visit and was standing in bathroom following patient care upon therapist arrival. Patient identified by name / and joined by OT therapy assistant for observation this session. Patient reports no c/o's pain, other than chronic morning LE joint stiffness and ambulates with use of wh walker, ad mirza in hallway CGA x 1. Patient demonstrates, slow, cautious gait pattern, decreased stride and needed v/c to focus on task in improving walker safety / navigation. Patient ambulated 150'x 1 with only mild fatigue and returned to activity room chair at table awaiting breakfast. Patient was talkative this morning, however had difficulty keeping on track while jumping between several different topics. Patient remained in activity room under [facility] staff Supervision. Will continue per POC as tolerated, total treatment time 14 minutes. Geoff Joy, PARKING LOT ATTENDANT
--- NOTE | 2020-07-08 07:25 | NUR ---
OT NOTE Prior to coming to the floor spoke with nurse Akers and reported that therapy was coming to treat this pt. Nurse gave approval. Pt was seen this A.M. 1:1 for 24 minute OT session with RELIEF SALESPERSON and nursing staff present for observation only. Upon arrival pt was sitting upright on the commode. Pt identified by name and and had no complaints at this time. While seated pt donned B socks, shoes, pants, and underpants with SBA however once standing pt required CGA to ticket puller his hips. Pt then stood sink side while washing his hands and face with CGA for safety. Challenged pt's dynamic standing balance while weight shifting, crossing midline, and reaching over all planes pt was able to maintain F- standing balance throughout. Functional mobility completed to the dining camilo with CGA and use of w/w. While seated pt completed BUE towel exercises over all planes for 1 X 10 with min resistance to increase and restore maximum functional strength. Pt was left sitting upright in the dining camilo under [facility] staff supervision. Continue with rec D/C plan to SNF. ELEANOR Dubois/Yohannes
[2020-07-08 08:00] VITALS: BP 100/60
--- NOTE | 2020-07-08 09:00 | NUR ---
Treatment Plan meeting was held this a.m. with TREASURE Ram, RN, AT, SW and Jackhammer Splitter Operator in attendance. Plan for discharge . Pt. will return to [facility].
--- NOTE | 2020-07-08 11:31 | NUR ---
NO ADVERSE MOODS OR BEHAVIORS NOTED. PT PLEASANTLY CONFUSED. MEDICATION COMPLIANT CONTINUE TO MONITOR BEHAVIORS WITH Q15 MINUTE SAFETY CHECKS. SEE [facility] FLOWSHEET FOR SPECIFIC MONITORING.
--- NOTE | 2020-07-08 11:45 | NUR ---
AM GROUP PT DID NOT ATTEND MORNING GROUP THERAPY. PT WAS IN BED RESTING.
--- NOTE | 2020-07-08 15:39 | NUR ---
PM GROUP/MOVIE PT DID NOT ATTEND AFTERNOON GROUP THERAPY. PT WAS IN BED RESTING.
[2020-07-08 20:43] VITALS: BP 104/60
--- NOTE | 2020-07-09 02:34 | NUR ---
24 HR chart check completed.
--- NOTE | 2020-07-09 06:21 | NUR ---
SLEPT APPROX 6 HOURS. UP X'S 3 TO VOID WITH 2 LIQ STOOLS
--- NOTE | 2020-07-09 07:15 | NUR ---
PHYSICAL THERAPY Patient seen this am for therapy visit and was sitting up in activity room chair at table upon therapist arrival. Patient identified by name / and joined by OT preschool teacher assistant for observation this session. Patient was very pleasant this morning voicing no new c/o's other than chronic early am B LE stiffness. Patient transfers sit to stand SBA and ambulates with use of wh walker, CGA, ad mirza in hallway, 75'x 2, demonstrating decreased stride and one episode of impulsive increased gait velocity without warning. Patient also tolerated, eyes open / closed x 10 seconds without LOB prior to returning to activity room chair awaiting breakfast. Patient remained in chair at table under [facility] staff Supervision and will continue per POC as tolerated. Total treatment time 16 minutes. Geoff Joy, WARRANT SERVER
--- NOTE | 2020-07-09 07:25 | NUR ---
OT NOTE Prior to coming to the floor spoke with nursing staff and reported that therapy was coming to treat this pt. Nursing gave approval. Pt was seen this A.M. 1:1 for 25 minute OT session with STRATEGY DIRECTOR and nursing staff present for observation only. Upon arrival pt was sitting upright in the dining camilo. Pt identified by name and and had no complaints at this time. Sit to stand completed from chair level with CGA and use of w/w for UE support. Functional mobility completed to his bedroom and back with CGA and use of w/w with verbal prompts for walker safety due to attempting to walk away without it. Challenged pt's dynmaic standing balance while weight shifting, crossing midline, and reaching over all planes. Pt was able to maintain F/F- standing balance throughout. Functional mobility completed back to the dining camilo. There he completed BUE towel exercises with mod resistance over all planes for 1 X 10 to increase and restore maximum functional strength. Pt was left sitting upright in the dining camilo under [facility] staff supervision. Continue with rec D/C plan to SNF. ELEANOR Dubois/Yohannes
[2020-07-09 07:44] VITALS: BP 110/54
[2020-07-09 07:56] VITALS: BP 112/68
--- NOTE | 2020-07-09 08:12 | NUR ---
FRANCIS FIGUEROA ON UNIT TO ASSESS PATIENT, UPDATE PROVIDED.
--- NOTE | 2020-07-09 08:30 | NUR ---
Treatment Plan meeting was held this a.m. with Dr. Nayak via telephone, TREASURE Ram, RN, AT, SW and Dye Tub Tender in attendance. Plan for discharge with return to [facility].
--- NOTE | 2020-07-09 11:43 | NUR ---
AM GROUP PT DID NOT ATTEND AFTERNOON GROUP THERAPY. PT WAS IN HIS ROOM RESTING.
--- NOTE | 2020-07-09 11:46 | NUR ---
P: PATIENT IS SAD, HOPELESS/HELPLESS, ISOLATIVE/WITHDRAWN, AND CONFUSED. I: 1:1 FOR EMOTIONAL SUPPORT. PROVIDE SPACE NEEDED. REDIRECT PATIENT NEEDED. ALLOW PATIENT TO VERBALIZE FEELINGS. R: EFFECTIVE. PATIENT IS ALERT TO SELF ONLY. PATIENT IS CONFUSED. PATIENT IS HOPELESS/HELPLESS. SAD, ISOLATIVE/WITHDRAWN. PATIENT DENIES SI/HI AND PAIN. PATIENT DENIES HALLUCINATIONS OR DELUSIONS. MEDICATION COMPLIANT WITH EDUCATION. PATIENT IS A SET UP FOR MEALS. INTAKES ARE GOOD WITH ADEQUATE FLUIDS. PATIENT IS AMBULATORY WITH WALKER. PATIENT IS CONTINENT. PATIENT IS EASILY REDIRECTED WHEN NEEDED. P: CONTINUE TO MONITOR FOR MOODS/BEHAVIORS. Q15 MINUTE SAFETY CHECKS MAINTAINED. REDIRECT PATIENT NEEDED. CONTINUE TO PROVIDED 1:1 FOR EMOTIONAL SUPPORT. ENCOURAGE MEDICATION COMPLIANCE. ENCOURAGE PARTICIPATION WITH GROUP ACTIVITIES.
--- NOTE | 2020-07-09 11:48 | NUR ---
Spoke with Chiara at [facility]. Advised of Plans to discharge Tommorow. Provided with Updates and Clinical Updates faxed to facility along with Covid 19 Swab negative results.= [phone]
--- NOTE | 2020-07-09 15:37 | NUR ---
PM GROUP PT DID NOT ATTEND AFTERNOON GROUP THERAPY. PT WAS RESTING IN HIS ROOM
[2020-07-09 20:00] VITALS: BP 128/54
--- NOTE | 2020-07-09 21:12 | NUR ---
Patient alert to self only with confusion noted. Mood is calm,cooperative but isolative to his room. Patient refused HS snacks. Patient denies SI/HI or any hallucinations. No overt s/s of any responding to internal stimuli noted at this time. Patient compliant with HS medications without any difficulty. Provided 1:1 for emotional support. Redirected/reoriented when needed. Plan to continue to encourage medication compliance. Also continue to offer emotional support and continue to redirect/reorient when needed/appropriate. Will continue to monitor moods/behaviors. Q 15 minute safety checks continued and maintained. See [facility] flowsheet for further documentation.
--- NOTE | 2020-07-10 00:27 | NUR ---
24 HR chart check completed.
--- NOTE | 2020-07-10 05:30 | NUR ---
Patient slept approx. 4 hours of interrupted sleep throughout shift. Q 15 minute safety checks continued and maintained.
--- NOTE | 2020-07-10 07:15 | NUR ---
PHYSICAL THERAPY Patient seen this am for therapy visit and was sitting up in activity room chair upon therapist arrival and identified by name / . OT licensed physical therapy assistant was also present this morning for observation only as patient transfers sit to stand, SBA x 1. Patient ambulates with use of wh walker, SBA, 40'x 1, to conference room where he was able to filler picker several objects from floor, SBA, demonstrating Fair+ safety awareness by holding on to his walker with one hand while picking objects up. Patient ambulated additional 75'x 1, wh walker, SBA and returned to activity room chair at table without LOB. Patient remained at table awaiting breakfast under [facility] staff Supervision and will continue per POC as tolerated. Total treatment time 16 minutes. Geoff Joy, SLOT OPERATIONS MANAGER
--- NOTE | 2020-07-10 07:30 | NUR ---
OT NOTE Prior to coming to the floor spoke with nurse and reported that therapy was coming to treat this pt. Nurse gave approval. Pt was seen this A.M. 1:1 for 20 minute OT session with SILK CONDITIONER and nursing staff present for observation only. Upon arrival pt was sitting upright in the dining camilo. Pt identified by name and and had no complaints at this time. Pt completed BUE towel exercises with mod resistance over all planes for 1 X 10 to increase and restore maximum functional strength. Sit to stand completed from chair level with SBA and use of w/w for UE support. Functional mobility completed to his bedroom and back with SBA and use of w/w. Challenged pt's dynamic standing balance while weight shifting, crossing midline, and reaching over all planes. Pt was able to maintain F+/G- standing balance throughout. Pt was left sitting upright in the dining camilo under [facility] staff supervision. Continue with rec D/C plan to SNF. ELEANOR Dubois/Yohannes
--- NOTE | 2020-07-10 08:30 | NUR ---
Treatment Plan meeting was held this a.m. with Dr. Nayak, RN, AT, SW and Heavy Truck Technician in attendance. Plan for discharge today. [facility]. will [facility].
[2020-07-10 08:43] VITALS: BP 108/58
[2020-07-10] MEDS ORDERED: VITAMIN D3125 MC1 PO (09:33)
[2020-07-10] MEDS ORDERED: RISPERIDONE0.5 MG PO (09:33)
[2020-07-10] MEDS ORDERED: RISPERIDONE1 MG PO (09:33)
[2020-07-10] MEDS ORDERED: MEMANTINE HCL10 MG PO (09:33)
[2020-07-10] MEDS ORDERED: RIVASTIGMINE1 EAC2 T (09:33)
--- NOTE | 2020-07-10 09:52 | NUR ---
Left Message for Pt. Daughter Claire to notify of Planned discharge today. Transportation Arranged with [facility] to Transport with railroad car repair supervisor time 1:00 p.m.
--- NOTE | 2020-07-10 11:37 | NUR ---
REPORT CALLED TO JESSI ARELLANO, AT [facility].
--- NOTE | 2020-07-10 11:43 | NUR ---
AM GROUP PT WAS IN AND OUT OF MORNING GROUP THERAPY. PT DID SIT AND LOOK AT THE NEWSPAPER FOR A FEW MINUTES. PT IS PLEASANTLY CONFUSED AND EXHIBITED NO ADVERSE BEHAVIORS WHILE IN GROUP.
--- NOTE | 2020-07-10 13:41 | NUR ---
ALL BELONGINGS SENT WITH PATIENT. DISCHARGE PACKET PROVIDED FOR FACILITY. PT LEFT THE UNIT IN STABLE CONDITION AT [address] [facility].
--- NOTE | 2020-07-11 07:38 | NUR ---
PHYSICAL THERAPY CO-SIGN I approve of the Physical Therapy notes written above. Leticia Diaz PT
--- NOTE | 2020-07-11 17:04 | NUR ---
OCCUPATIONAL THERAPY CO-SIGN I approve of the Occupational Therapy notes written above. PETER ZHANG OTR/Yohannes
== END 2020-07-10 13:41 | DRG 883 ==
LOC: 3N 17:14
PROVIDERS: Internal Medicine; ADMIT Psychiatry & Neurology Psychiatry; ATTEND Psychiatry & Neurology Psychiatry
PROC: 0HBRXZZ Excision of Toe Nail, External Approach (ICD-10-PCS; principal; 2020-07-01)
DX: F63.81 Intermittent explosive disorder (principal); I25.810 Atherosclerosis of coronary artery bypass graft(s) without angina pectoris; G30.9 Alzheimer's disease, unspecified; R45.850 Homicidal ideations; K21.9 Gastro-esophageal reflux disease without esophagitis; E50.9 Vitamin A deficiency, unspecified; G40.909 Epilepsy, unspecified, not intractable, without status epilepticus; K08.409 Partial loss of teeth, unspecified cause, unspecified class; B35.1 Tinea unguium; Z20.828 Contact with and (suspected) exposure to other viral communicable diseases; F02.80 Dementia in other diseases classified elsewhere, unspecified severity, without behavioral disturbance, psychotic disturbance, mood disturbance, and anxiety; I10 Essential (primary) hypertension; E78.5 Hyperlipidemia, unspecified; M19.90 Unspecified osteoarthritis, unspecified site; J43.9 Emphysema, unspecified; E78.00 Pure hypercholesterolemia, unspecified; Z86.73 Personal history of transient ischemic attack (TIA), and cerebral infarction without residual deficits; Z95.1 Presence of aortocoronary bypass graft

== ENCOUNTER 2020-06-30 20:00 | Emergency (ER) | payer MEDICARE, BC ==
[~2020-06-30] VITALS: Ht 177.8 cm; Wt 72.6 kg
[~2020-06-30 20:00] MED LIST: BROVANA15 MCG/2 M INH; CLARITIN10 MG PO; COREG6.25 MG PO; EXELON1 EACH T; KEPPRA500 MG PO; LAXATIVE SUPPOS10 MG R; LIPITOR40 MG PO; MILK OF MA400 MG/5 M PO; MIRALAX119 GM PO; Meclizine25 MG PO; PROTONIX40 MG PO; RISPERDAL0.5 MG PO; SENNA LAX8.6 M1 PO; TYLENOL325 M1 PO; Theo-24 200MG200 MG PO; VISTARIL50 MG PO; VITAMIN A & D113 GM T; ZESTRIL10 MG PO; [UNRECOGNIZED DRUG - CODE] PO
== END 2020-06-30 22:12 | disposition home health service (06) ==
LOC: ED 20:00
DX: R45.850 Homicidal ideations (principal); R45.1 Restlessness and agitation; Z79.899 Other long term (current) drug therapy; Z79.2 Long term (current) use of antibiotics; Z20.828 Contact with and (suspected) exposure to other viral communicable diseases